=== PATIENT | female | born 1960 | race African-American/Black ===

== ENCOUNTER 2018-12-28 18:36 | Inpatient (IN) | payer MEDICARE, MEDICAID ==
[~2018-12-28] VITALS: Ht 160 cm; Wt 100.7 kg
[2018-12-28] MEDS ORDERED: TRAMADOL 50MG TABLET PO ONE (19:15)
[2018-12-28 19:44] LABS: BASOPHILS % 0.5 % (0.0-2.0); EOSINOPHILS % 5.3 % (0.0-5.0); HEMATOCRIT. 39.2 % (36.0-48.0); LYMPHOCYTES % 22.6 % (20.0-50.0); MEAN CORPUSCULAR HEMOGLOBIN 30.5 pg (28.0-32.0); MEAN CORPUSCULAR VOLUME 91.9 fL (81.0-99.0); MEAN PLATELET VOLUME 8.5 fl (7.4-10.4); MONOCYTES % 9.2 % (2.0-8.0); NEUTROPHILS % 62.4 % (40.0-76.0); PLATELET 238 x1000/uL (130-400); RED BLOOD CELL COUNT 4.27 mill/uL (4.2-5.4); RED CELL DISTRIBUTION WIDTH 15.2 % (11.6-14.6)
[2018-12-28 19:49] LABS: CHLORIDE 93 mEq/L (98-107)
[2018-12-28 19:50] LABS: PARTIAL THROMBOPLASTIN TIME 25.5 sec (23.4-31.0); PROTHROMBIN TIME 10.2 sec (9.6-11.0)
[2018-12-28 19:53] LABS: ETHANOL BLOOD < 10 mg/dL
[2018-12-28 21:10] LABS: *AMPHETAMINES SCREEN URINE NEGATIVE (NEGATIVE); *BARBITURATES SCREEN URINE NEGATIVE (NEGATIVE); *BENZODIAZEPINES SCREEN URINE NEGATIVE (NEGATIVE); *COCAINE SCREEN URINE NEGATIVE (NEGATIVE)
[2018-12-28 21:11] LABS: CANNABINOID URINE SCREEN NEGATIVE (NEGATIVE); METHADONE URINE SCREEN NEGATIVE (NEGATIVE); OPIATES URINE SCREEN NEGATIVE (NEGATIVE); PHENCYCLIDINE URINE SCREEN NEGATIVE (NEGATIVE)
[2018-12-28] MEDS ORDERED: CLONIDINE 0.2MG TABLET PO ONE (22:30)
[2018-12-28] MEDS ORDERED: HYDRALAZINE 20MG/ML VIAL IV ONE (23:00)
[2018-12-29 09:30] VITALS: BP 166/84
[2018-12-29] MEDS ORDERED: ONDANSETRON HCL 4MG/2ML INJ IV PRN (09:45)
[2018-12-29] MEDS ORDERED: ACETAMINOPHEN 325MG TABLET PO PRN (09:45)
[2018-12-29] MEDS ORDERED: DEXTROSE 50% WATER 50ML SYRINGE IV PRN (09:45)
[2018-12-29] MEDS ORDERED: HYDR200T35 MT (11:32)
[2018-12-29] MEDS ORDERED: ALBU6.7H9 INH (11:32)
[2018-12-29] MEDS ORDERED: METO-539 MT (11:32)
[2018-12-29] MEDS ORDERED: PRED10TA23 MT (11:32)
[2018-12-29] MEDS ORDERED: AMIT25TA9 MT (11:32)
[2018-12-29] MEDS ORDERED: OLME40TA11 MT (11:32)
[2018-12-29] MEDS ORDERED: TRAM50TA MT (11:32)
[2018-12-29] MEDS ORDERED: LINA145C MT (11:32)
[2018-12-29 12:00] VITALS: BP 155/77
[2018-12-29] MEDS: BLOOD SUGAR DIAGNOSTIC STRIP TEST SCH ×3 (12:45→21:05)
[2018-12-29] MEDS: INSULIN GLARGINE UD 100 UNITS/ML SYR SUBCUT SCH ×2 (12:52→23:52)
[2018-12-29] MEDS: INSULIN LISPRO 100 UNITS/ML SUBCUT SCH ×3 (13:56→21:04)
[2018-12-29] MEDS ORDERED: TRAMADOL 50MG TABLET PO PRN (14:15)
[2018-12-29] MEDS: METOPROLOL TARTRATE 50MG TABLET PO SCH ×2 (16:59→21:04)
[2018-12-29] MEDS: ASPIRIN 81MG TABLET PO SCH (16:59)
[2018-12-29 17:28] VITALS: BP 124/58
[2018-12-29 20:00] VITALS: BP 160/81
[2018-12-29] MEDS: AMLODIPINE 5MG TABLET PO SCH (21:05)
[2018-12-30] VITALS: BP 155/67
[2018-12-30 04:00] VITALS: BP 126/61
[2018-12-30 06:46] LABS: BASOPHILS % 0.5 % (0.0-2.0); EOSINOPHILS % 5.3 % (0.0-5.0); HEMATOCRIT. 31.7 % (36.0-48.0); HEMOGLOBIN. 10.6 g/dL (12.0-16.0); LYMPHOCYTES % 29.8 % (20.0-50.0); MEAN CORPUSCULAR HEMOGLOBIN 30.3 pg (28.0-32.0); MEAN CORPUSCULAR VOLUME 90.8 fL (81.0-99.0); MEAN PLATELET VOLUME 8.3 fl (7.4-10.4); MONOCYTES % 13.7 % (2.0-8.0); NEUTROPHILS % 50.7 % (40.0-76.0); PLATELET 185 x1000/uL (130-400); RED BLOOD CELL COUNT 3.49 mill/uL (4.2-5.4); RED CELL DISTRIBUTION WIDTH 15.3 % (11.6-14.6)
[2018-12-30 06:49] LABS: PHOSPHORUS 7.3 mg/dL (2.5-4.9)
[2018-12-30 08:00] VITALS: BP 143/53
[2018-12-30] MEDS: BLOOD SUGAR DIAGNOSTIC STRIP TEST SCH ×2 (08:00→12:59)
[2018-12-30] MEDS: INSULIN LISPRO 100 UNITS/ML SUBCUT SCH ×2 (08:32→12:59)
[2018-12-30] MEDS: AMLODIPINE 5MG TABLET PO SCH (08:36)
[2018-12-30] MEDS: ASPIRIN 81MG TABLET PO SCH (08:37)
[2018-12-30] MEDS: METOPROLOL TARTRATE 50MG TABLET PO SCH (08:39)
[2018-12-30] MEDS ORDERED: INSULIN GLARGINE UD 100 UNITS/ML SYR SUBCUT SCH (10:00)
[2018-12-30 12:00] VITALS: BP 138/79
[2018-12-30 15:02] VITALS: BP 155/75
== END 2018-12-30 15:22 | disposition home or self-care (01) | DRG 304 ==
LOC: ER 20:09 → EDBEDREQTM 22:40 → EDBEDREQ 22:40 → 7WST 23:01 → EDBEDREQ 23:07 → EDBEDREQTM 23:07 → CANBEDREQ 12-29 06:11 → EDBEDREQTM 12-29 06:46 → EDBEDREQDT 12-29 06:46 → ENRESERV 12-29 07:16
PROVIDERS: ADMIT Internal Medicine; ATTEND Internal Medicine
PROC: 5A1D70Z Performance of Urinary Filtration, Intermittent, Less than 6 Hours Per Day (ICD-10-PCS; principal; 2018-12-29)
DX: I16.0 Hypertensive urgency (principal); N18.6 End stage renal disease; E87.1 Hypo-osmolality and hyponatremia; R07.89 Other chest pain; I13.2 Hypertensive heart and chronic kidney disease with heart failure and with stage 5 chronic kidney disease, or end stage renal disease; E11.22 Type 2 diabetes mellitus with diabetic chronic kidney disease; E66.01 Morbid (severe) obesity due to excess calories; R91.8 Other nonspecific abnormal finding of lung field; E78.5 Hyperlipidemia, unspecified; E87.8 Other disorders of electrolyte and fluid balance, not elsewhere classified; D72.1 Eosinophilia; I50.9 Heart failure, unspecified; M32.9 Systemic lupus erythematosus, unspecified; F41.9 Anxiety disorder, unspecified; Z99.2 Dependence on renal dialysis; Z82.49 Family history of ischemic heart disease and other diseases of the circulatory system; Z68.39 Body mass index [BMI] 39.0-39.9, adult; Z71.3 Dietary counseling and surveillance
CPT/HCPCS: 36415; 71045; 71250; 80048; 80305; 80320; 82962; 83735; 83880; 84100; 84484; 85651; 93005; 93306; 99285; J0360; J1815; G0480